=== PATIENT | female | born 1980 | race Caucasian/White ===

== ENCOUNTER → 2024-04-16 | Outpatient (CLI) | payer BC ==
[2024-04-16 13:22] VITALS: BP 136/80; PULSE 89; RESP 17; TEMP 98.3
--- NOTE | 2024-04-16 13:48 | P.GSCN ---
History of Present Illness Consult date: 04/16/24 Reason for Consult: bilateral breast cyst History of present illness: Jeanette is a 44 year old female seen secondary to questions regarding multiple breast cysts. She underwent a bilateral mammogram on 10-28-2023. This was felt to be BI-RADS 0 and bilateral breast ultrasound were recommended. The study was done on 12-01-2023. Multiple cysts were identified in both breast the largest on the right measuring 2 cm and the largest on the left measuring 1 cm. The radiographs were actually able to be reviewed of the mammogram and of the right breast ultrasound but not of the left breast ultrasound. She complains of pain in her right breast. The pain is shooting and present for over a year. 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 She complains of some nodularity in the lateral right breast but no nodules in the left breast. Not complaining of any recent trauma or infection in the breast. She is not complaining of any nipple discharge or skin changes. She has never had any surgery on her breast. Caffeine: 20 oz cup coffee/day; 16 oz pop day nicotine: none chocolate: occasional BCP: stopped 23 years ago, used them for 1 year uses merina for control; used it for 18 years Family History: sister: breast cancer at 41, genetic testing (-) mother: breast cancer in her 50's maternal aunt: breast cancer in her 40's Hormonal History: menarche: 8 , age at yue: 21, breat fed: no periods on merina prior did not have one for 18 years Surgical History: Medical History: asthma pre-diabetic Social HIstory: nicotine: none alcohol: none drugs: none Review of Systems - Constitutional Reports sweats - EENT Eyes: denies blurred vision Ears: bilateral: decreased hearing, tinnitus Ears, nose, mouth and throat: Denies dysphagia - Breasts bilateral: as per HPI - Cardiovascular Reports as per HPI, Denies chest pain, Denies shortness of breath - Respiratory Denies cough, Denies 7 - Gastrointestinal Reports as per HPI - Genitourinary Genitourinary: Denies dysuria, Denies hematuria Menstruation: Reports as per HPI - Musculoskeletal Musculoskeleta Comment(s): back pain Reports as per HPI - Integumentary Denies rash, Denies unusual bruising - Neurological Denies headaches, Denies syncope - Psychiatric Reports as per HPI - Endocrine Endocrine Comment(s): gain weight Reports fatigue, Reports weight change - Hematologic/Lymphatic Denies easy bleeding, Denies easy bruising - Allergic/Immunologic Reports seasonal allergies Past Medical History Past Medical History: Asthma History of Any Multi-Drug Resistant Organisms: None Reported Past Surgical History: Section Past Anesthesia/Blood Transfusion Reactions: No Reported Reaction Past Psychological History: No Psychological Hx Reported Smoking Status: Never smoker Past Alcohol Use History: None Reported Past Drug Use History: None Reported Medications and Allergies Home Medications Medication Instructions Recorded Confirmed Type Biotin 5 mg PO DAILY 04/16/24 04/16/24 History Black Cohosh 1 cap PO DAILY 04/16/24 04/16/24 History Cholecalciferol (Vitamin D3) 125 mcg PO DAILY 04/16/24 04/16/24 History [Vitamin D3 (125 MCG = 5,000 IU)] Cyanocobalamin [Vitamin B-12] 500 mcg PO DAILY 04/16/24 04/16/24 History Montelukast [Singulair] 10 mg PO DAILY 04/16/24 04/16/24 History PARoxetine [Paxil] 10 mg PO DAILY 04/16/24 04/16/24 History Allergies Allergy/AdvReac Type Severity Reaction Status Date / Time No Known Allergies Allergy Unverified 04/16/24 13:14 Surgical - Exam Vital Signs Temp Pulse Resp BP Pulse Ox 98.3 F 89 17 136/80 97 04/16/24 13:19 04/16/24 13:19 04/16/24 13:19 04/16/24 13:19 04/16/24 13:19 - General no distress - Eyes normal ocular movement - Neck trachea midline - Respiratory normal respiratory effort, clear to auscultation - Cardiovascular Rhythm: regular Heart Sounds: normal: S1, S2 - Abdomen Abdomen: soft, non tender, no guarding, no rigid, no rebound - Integumentary normal turgor - Neurologic no disoriented, no combative - Musculoskeletal normal gait - Psychiatric oriented to time, oriented to person, oriented to place, speech is normal, memory intact Breast Exam: BRA: 36C Inspection: Bilateral grade 2/3 ptosis Palpation: Right breast: Multi positional exam fibrocystic changes, probable nodularity related to cyst tender upper outer quadrant area extending into the axilla Right axilla: No adenopathy of concern Left breast: Multi positional exam fibrocystic changes no dominant masses or nodules of concern Left axilla: No adenopathy of concern Results Bilateral mammogram and right breast ultrasound be were able to be personally reviewed, multiple cysts in the right breast this this was from 10-28-2023 and 12-01-2023 Left breast ultrasound was not available for review Assessment and Plan Assessment: Impression: Cyst right breast/mastodynia Ultrasound report cyst left breast Fibrocystic breast disease Strong family history of breast cancer Plan: Bilateral breast ultrasound and bilateral axillary ultrasound with follow-up after this is done Lifestyle modification discussed with the patient stopping caffeine intake Consider related to Mirena may be affecting her breast CC: Tiny Mcmahon
== END ==
LOC: WWCWWP 11:57
PROVIDERS: ATTEND Surgery
DX: N60.11 Diffuse cystic mastopathy of right breast (principal); N60.12 Diffuse cystic mastopathy of left breast; N60.02 Solitary cyst of left breast; N60.01 Solitary cyst of right breast; Z80.3 Family history of malignant neoplasm of breast

== ENCOUNTER → 2024-06-25 | Outpatient (CLI) | payer BC ==
--- NOTE | 2024-06-25 14:27 | USB ---
Reason for Exam: Additional evaluation requested from prior study. Risk Values: Courtney 5 year model risk: 0.6%. NCI Lifetime model risk: 6.3%. Technique: Method: Whole Breast Handheld. Findings: The whole breast of both breasts, the axilla of both breasts and the retroareolar of both breasts were scanned. Electronically signed and approved by: Tigre Krishnan DO
== END | disposition home or self-care (01) ==
LOC: RADUSWWP 12:39
PROVIDERS: ATTEND Surgery
DX: N60.09 Solitary cyst of unspecified breast (principal)

== ENCOUNTER → 2024-06-25 | Outpatient (CLI) | payer BC ==
[2024-06-25 13:56] VITALS: BP 116/74; PULSE 77; RESP 16; TEMP 98.3
--- NOTE | 2024-06-25 14:13 | P.PN ---
Subjective Progress Note Date: 06/25/24 Principal diagnosis: breast pain 04/16/24 Reason for Consult: bilateral breast cyst History of present illness: Jeanette is a 44 year old female seen secondary to questions regarding multiple breast cysts. She underwent a bilateral mammogram on 10-28-2023. This was felt to be BI-RADS 0 and bilateral breast ultrasound were recommended. The study was done on 12-01-2023. Multiple cysts were identified in both breast the largest on the right measuring 2 cm and the largest on the left measuring 1 cm. The radiographs were actually able to be reviewed of the mammogram and of the right breast ultrasound but not of the left breast ultrasound. She complains of pain in her right breast. The pain is shooting and present for over a year. 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 She complains of some nodularity in the lateral right breast but no nodules in the left breast. Not complaining of any recent trauma or infection in the breast. She is not complaining of any nipple discharge or skin changes. She has never had any surgery on her breast. 06-25-24 ultrasound bilateral breast done on 06-25-24; bilateral breast cyst noted The patient can feel nodularity in both breast, bilateral breast pain. The pain is greatest in the right axillary region and in the left upper medial breast. She stoped drinking caffeine which made some improvement of the breast pain but not complete, but she did lose approximately 10 pounds. She does not get periods she has an IUD. The pain is not cyclical but it is constant. It is worse with touching. Caffeine: 20 oz cup coffee/day; 16 oz pop day nicotine: none chocolate: occasional BCP: stopped 23 years ago, used them for 1 year uses merina for control; used it for 18 years Family History: sister: breast cancer at 41, genetic testing (-) mother: breast cancer in her 50's maternal aunt: breast cancer in her 40's Hormonal History: menarche: 8 , age at yue: 21, breat fed: no periods on merina prior did not have one for 18 years Surgical History: Medical History: asthma pre-diabetic Social HIstory: nicotine: none alcohol: none drugs: none Review of Systems - Constitutional Reports sweats - EENT Eyes: denies blurred vision Ears: bilateral: decreased hearing, tinnitus Ears, nose, mouth and throat: Denies dysphagia - Breasts bilateral: as per HPI - Cardiovascular Reports as per HPI, Denies chest pain, Denies shortness of breath - Respiratory Denies cough - Gastrointestinal Reports as per HPI - Genitourinary Genitourinary: Denies dysuria, Denies hematuria Menstruation: Reports as per HPI - Musculoskeletal Musculoskeleta Comment(s): back pain Reports as per HPI - Integumentary Denies rash, Denies unusual bruising - Neurological Denies headaches, Denies syncope - Psychiatric Reports as per HPI - Endocrine Endocrine Comment(s): gain weight Reports fatigue, Reports weight change - Hematologic/Lymphatic Denies easy bleeding, Denies easy bruising - Allergic/Immunologic Reports seasonal allergies Past Medical History Past Medical History: Asthma History of Any Multi-Drug Resistant Organisms: None Reported Past Surgical History: Section Past Anesthesia/Blood Transfusion Reactions: No Reported Reaction Past Psychological History: No Psychological Hx Reported Smoking Status: Never smoker Past Alcohol Use History: None Reported Past Drug Use History: None Reported Medications and Allergies Home Medications Medication Instructions Recorded Confirmed Type Biotin 5 mg PO DAILY 04/16/24 04/16/24 History Black Cohosh 1 cap PO DAILY 04/16/24 04/16/24 History Cholecalciferol (Vitamin D3) 125 mcg PO DAILY 04/16/24 04/16/24 History [Vitamin D3 (125 MCG = 5,000 IU)] Cyanocobalamin [Vitamin B-12] 500 mcg PO DAILY 04/16/24 04/16/24 History Montelukast [Singulair] 10 mg PO DAILY 04/16/24 04/16/24 History PARoxetine [Paxil] 10 mg PO DAILY 04/16/24 04/16/24 History Allergies Allergy/AdvReac Type Severity Reaction Status Date / Time No Known Allergies Allergy Unverified 04/16/24 13:14 Objective - Vital Signs Vital signs: Vital Signs Temp 98.3 F 06/25/24 13:54 Pulse 77 06/25/24 13:54 Resp 16 06/25/24 13:54 BP 116/74 06/25/24 13:54 Pulse Ox 99 06/25/24 13:54 FiO2 Intake & Output 06/24/24 06/25/24 06/25/24 18:59 06:59 18:59 Weight 74.843 kg - Constitutional General appearance: Present: cooperative - EENT ENT: Present: hearing grossly normal - Neck Neck: Present: normal ROM - Respiratory Respiratory: bilateral: CTA - Cardiovascular Rhythm: regular Heart sounds: normal: S1, S2 - Integumentary Integumentary: Present: normal turgor - Musculoskeletal Musculoskeletal: Present: gait normal - Psychiatric Psychiatric: Present: A&O x's 3, appropriate affect, intact judgment & insight - Additional findings Additional findings: Breast Exam: BRA: 36C Inspection: Bilateral grade 2/3 ptosis Palpation: Right breast: Multi positional exam fibrocystic changes, probable nodularity related to cyst tender upper outer quadrant area extending into the axilla; 30 greatest in the lateral aspect of the breast at approximately the 9 o'clock position Right axilla: No adenopathy of concern Left breast: Multi positional exam fibrocystic changes no dominant masses or nodules of concern Left axilla: No adenopathy of concern Assessment and Plan Assessment: Impression: Cyst right breast/mastodynia Ultrasound report cyst left breast Fibrocystic breast disease Strong family history of breast cancer Nodularity palpable 9 o'clock position right breast Infection under the breast Plan: Aspiration of nodularity/cyst right breast Nystatin as needed Patient due for bilateral mammogram in 6 months CC: Tiny Mcmahon
== END ==
LOC: WWCWWP 12:41
PROVIDERS: ATTEND Surgery
DX: N60.11 Diffuse cystic mastopathy of right breast (principal); N60.12 Diffuse cystic mastopathy of left breast; Z80.3 Family history of malignant neoplasm of breast